=== PATIENT | male | born 1965 | race Two or more races ===

== ENCOUNTER 2021-03-04 17:37 | Emergency (ER) | payer OTHER ==
[~2021-03-04] VITALS: Ht 165.1 cm; Wt 68.0 kg
[2021-03-04 18:01] VITALS: BP 112/72
[2021-03-04] MEDS ORDERED: DexAMETHasone SOD PHOS 10MG/1ML VIAL INJ IM ONE (18:15)
[2021-03-04] MEDS ORDERED: cefTRIAXone SOD 1,000 MG VL IM ONE (18:15)
[2021-03-04] MEDS ORDERED: METH4PAK PO (18:16)
[2021-03-04] MEDS ORDERED: AZIT500T66 PO (18:16)
== END 2021-03-04 18:32 | disposition home or self-care (01) ==
LOC: ER 17:37
DX: U07.1 COVID-19 (principal); J12.82 Pneumonia due to coronavirus disease 2019; R07.89 Other chest pain
CPT/HCPCS: 71045; 93005; 96372; 99284; J0696; J1100